=== PATIENT | male | born 1985 | race Caucasian/White ===

== ENCOUNTER 2017-09-14 20:14 | Emergency (ER) | payer MEDICAID ==
[~2017-09-14] VITALS: Ht 175.3 cm; Wt 55.0 kg
[2017-09-14 20:20] VITALS: BP 111/72
[2017-09-14] MEDS ORDERED: FLUCONAZOLE 200 MG TABLET PO STA (21:34)
[2017-09-14] MEDS ORDERED: FLUCONAZOLE 100 MG TABLET ONE (21:38)
[2017-09-14] MEDS ORDERED: FLUCONAZOLE 200 MG TABLET PO ONE (22:00)
== END 2017-09-14 22:03 | disposition home or self-care (01) ==
LOC: ED 22:00
DX: B35.3 Tinea pedis (principal); F17.210 Nicotine dependence, cigarettes, uncomplicated
CPT/HCPCS: 99283